=== PATIENT | female | born 1960 ===

== ENCOUNTER 2018-03-07 17:33 | Emergency (ER) | payer MEDICAID ==
[2018-03-07 17:33] VITALS: BMI 46.3
[2018-03-07 17:52] VITALS: BP 113/75; PULSE 68; RESP 18; TEMP 98.3; O2SAT 97
--- NOTE | 2018-03-07 17:53 | PCM.FALL ---
<Syeda Wallace - Last Filed: 03/07/18 17:38> Post Fall Progress Note - Post Fall Fall Date: 03/07/18 Fall Time: 17:11 Description of Fall: unwitnessed, fall outside of PACU, fell on left side, complains of left hip pain - Post Fall Exam Eye Exam: Positive for: Pupils equal Ear Exam: Negative for: Discharge Nose Exam: Negative for: Discharge Skin Exam: Negative for: Bruising Mouth Exam: Negative for: Tongue bitten Neck Exam: Negative for: Tenderness, Weakness Spinal Exam: Negative for: Tenderness Chest Exam: Negative for: Difficulty breathing, Tenderness in collar bones Abdomen Exam: Negative for: Tenderness Pelvic Exam: Negative for: Tenderness Arm Exam: Negative for: Deformity Other pertinent findings: tenderness in left trochanter Impression/Plan: Patient reports slipping on the floor and falling on her left hip. She denies any dizziness, shortness of breath, headache, chest pain, or nausea. Patient reports pain in the left hip. Fall was not witnessed. Patient denies any past medical history or taking any current medications. She denies hitting her head, taking any blood thinners, or antiplatelets, easy bruising or bleeding. She reports normally walking with a cane but did not bring it in to the hospital. She was visiting someone in the hospital. She is alert and oriented x 3. No gross motor deficits appreciated. No point tenderness in vertebral bodies from the cervical to lumbar spine. No tenderness in the sacrum. Patient was unable to flex left hip likely secondary to pain. PLAN: admit patient to the ED for complete work-up. <Lyly Gallagher - Last Filed: 03/08/18 08:12> Post Fall Progress Note - Post Fall Exam Vital Sign: Temp Pulse Resp BP Pulse Ox 98.3 F 68 18 113/75 97 03/07/18 17:33 03/07/18 17:33 03/07/18 17:33 03/07/18 17:33 03/07/18 17:33 Attending/Attestation - Attestation I have reviewed all pertinent clinical information, including history, physical exam and plan: Yes Notes (Text): Case discussed with resident. Patient sent to ER for further work up and treatment
--- NOTE | 2018-03-07 18:03 | ED PDOC ---
Arrival/HPI - General Historian: Patient - History of Present Illness Time/Duration: Prior to Arrival Quality: Aching Context: Home - General Chief Complaint: Trauma Time Seen by Provider: 03/07/18 18:02 - History of Present Illness Narrative History of Present Illness (Text): 03/07/18 18:03 This 57 yo female presents to this ED c/o left hip, lower back, and left shoulder pain x [employer]. Patient stated she tripped and fell down. Patient denies head injury, LOC, syncope, SOB, CP, /GI incontinence, saddle anesthesias, urinary retention, weakness, paresthesias, or dizziness. (Anne Marie Sanabria) Past Medical History - Provider Review Nursing Documentation Reviewed: Yes - Past Medical History Past Medical History: No Previous - Cardiac Hx Pacemaker: No - Neurological Hx Paralysis: No - Hematological/Oncological Hx Blood Transfusions: No - Musculoskeletal/Rheumatological Hx Musculoskeletal Disorders: Yes - Psychiatric Hx Emotional Abuse: No Hx Physical Abuse: No Hx Substance Use: No - Surgical History Hx Orthopedic Surgery: Yes (KNEE) - Anesthesia Hx Anesthesia: Yes Hx Anesthesia Reactions: No Hx Malignant Hyperthermia: No - Suicidal Assessment Feels Threatened In Home Enviroment: No Family/Social History - Physician Review Nursing Documentation Reviewed: Yes Family/Social History: Other (noncontributory) Smoking Status: Never Smoked Hx Alcohol Use: No Hx Substance Use: No Allergies/Home Meds Allergies/Adverse Reactions: Allergies No Known Allergies Allergy (Verified 10/16/13 10:43) Home Medications: Home Meds Medication Instructions Recorded Confirmed Ibuprofen [Advil] 200 mg PO PRN PRN 03/30/16 04/05/16 Review of Systems - Review of Systems Constitutional: Normal. absent: Fatigue, Weight Change, Fevers, Night Sweats Eyes: Normal ENT: Normal Respiratory: Normal Cardiovascular: Normal Gastrointestinal: Normal Genitourinary Female: Normal Musculoskeletal: Back Pain, Other (see hpi). absent: Neck Pain Skin: Normal Neurological: Normal. absent: Headache, Dizziness, Focal Weakness, Gait Changes , Speech Changes, Facial Droop, Disequilibrium, Seizure Endocrine: Normal Hemo/Lymphatic: Normal Psychiatric: Normal Physical Exam Temperature: Afebrile Blood Pressure: Normal Pulse: Regular Respiratory Rate: Normal Appearance: Positive for: Well-Appearing, Non-Toxic, Comfortable Pain Distress: None Mental Status: Positive for: Alert and Oriented X 3 - Systems Exam Head: Present: Atraumatic, Normocephalic Pupils: Present: PERRL Extroacular Muscles: Present: EOMI Conjunctiva: Present: Normal Mouth: Present: Moist Mucous Membranes Neck: Present: Normal Range of Motion Respiratory/Chest: Present: Clear to Auscultation, Good Air Exchange. No: Respiratory Distress, Accessory Muscle Use Cardiovascular: Present: Regular Rate and Rhythm, Normal S1, S2. No: Murmurs Abdomen: No: Tenderness, Distention, Peritoneal Signs Back: Present: Normal Inspection. No: CVA Tenderness Upper Extremity: Present: Normal Inspection, Normal ROM, NORMAL PULSES, Neurovascularly Intact. No: Cyanosis, Edema Lower Extremity: Present: Normal Inspection, NORMAL PULSES, Normal ROM, Neurovascularly Intact, Capillary Refill < 2 s. No: Edema Neurological: Present: GCS=15, CN II-XII Intact, Speech Normal, Motor Func Grossly Intact, Normal Sensory Function, Normal Cerebellar Funct, Gait Normal, Memory Normal Skin: Present: Warm, Dry, Normal Color. No: Rashes Psychiatric: Present: Alert, Oriented x 3, Normal Insight, Normal Concentration Vital Signs Temp Pulse Resp BP Pulse Ox 03/07/18 17:33 98.3 F 68 18 113/75 97 Medical Decision Making Re-evaluation Time: 19:23 Reassessment Condition: Re-examined, Improved ED Course and Treatment: 03/07/18 19:22 Patient is resting comfortably, is no longer having back pain, no fever, no bony tenderness, no numbness, no weakness, or abdominal pain. Patient is ambulatory in the emergency department with no signs of discomfort. Patient was advised to follow up with their physician in 1-2 days. Patient came to ED for evaluation of left hip pain. Patient stated she had a mechanical fall on her left hip. Patient stated left hip radiates to her lower back. She noted mild left shoulder pain. Patient has FROM of UE and LE. Physical exam was unremarkable. No ecchymosis, abrasion, or erythema visualized. Patient had a no tenderness of her left hip, left shoulder, or back examination. Patient has her normal baseline gait. Patient noted she uses a cane for ambulation, and she forgot to bring it with her today. X-rays were negative for fracture, and patient was recommended Naproxen 500 mg PO BID PRN pain, and Pepcid 40 mg daily for 5-7 days. To follow up PMD in 1-2 days, and to return to ED if pain worsen. (Anne Marie Sanabria) - RAD Interpretation Narrative RAD Interpretations (Text): 03/07/18 19:23 Shoulder x-rays: no Fx or dislocation Hip x-rays: No Fx. or dislocation LS X-rays: No Fx or sublux. (Anne Marie Sanabria) Radiology Orders: 03/07/18 18:05 Hip Left [HIP MIN 2V W/ PELVIS LT] [RAD] Stat 03/07/18 18:06 LS SPINE WITH OBL > 18 YRS OLD [RAD] Stat SHOULDER LEFT [RAD] Stat - Medication Orders Current Medication Orders: Discontinued Medications Naproxen (Anaprox Ds) 550 mg PO STAT STA Stop: 03/07/18 18:22 Last Admin: 03/07/18 18:33 Dose: 550 mg Disposition/Present on Arrival - Present on Arrival Any Indicators Present on Arrival: No History of DVT/PE: No History of Uncontrolled Diabetes: No Urinary Catheter: No History of Decub. Ulcer: No History Surgical Site Infection Following: None - Disposition Have Diagnosis and Disposition been Completed?: Yes Disposition Time: 19:25 Patient Plan: Discharge - Disposition Diagnosis: Back pain, Hip pain Disposition: HOME/ ROUTINE Condition: GOOD Discharge Instructions (ExitCare): Low Back Pain (DC), Hip Pain (DC) Additional Instructions: Call private doctor for follow up visit in 1-2 days. Take medication as instructed with food. Return to emergency if symptoms worsen. Prescriptions: Famotidine [Pepcid] 40 mg PO DAILY #10 tablet Naproxen 500 mg PO BID PRN #14 tablet PRN Reason: Pain, Severe (8-10) Referrals: Hayde Henderson MD [Primary Care Provider] - Follow up with primary Forms: [employer] ([place]ian)
[2018-03-07] MEDS ORDERED: Naproxen 550 mg Tab PO STA (18:21)
--- NOTE | 2018-03-08 08:15 | RAD ---
PROCEDURE: Left Hip and pelvis X-ray Radiographs. HISTORY: pain s/p fall COMPARISON: None. FINDINGS: BONES: Normal. No fracture. JOINTS: Normal. SOFT TISSUES: Normal. OTHER FINDINGS: None. IMPRESSION: Normal left hip radiographs.
--- NOTE | 2018-03-08 08:15 | RAD ---
Date of service: 03/07/2018 PROCEDURE: Radiographs of the Lumbar Spine. HISTORY: pain s/p fall COMPARISON: No prior. FINDINGS: BONES: Normal alignment. No listhesis. No fracture. DISC SPACES: Unremarkable. OTHER FINDINGS: Moderate facet arthropathy at L4-5 and L5-S1 IMPRESSION: No acute findings
--- NOTE | 2018-03-08 08:16 | RAD ---
Date of service: 03/07/2018 PROCEDURE: Radiographs of the Left Shoulder HISTORY: pain s/p fall COMPARISON: No prior. FINDINGS: BONES: Normal. No fracture. JOINTS: Normal. Glenohumeral and acromioclavicular joints preserved. No osteoarthritis. SOFT TISSUES: Normal. OTHER FINDINGS: None. IMPRESSION: Normal radiographs of the left shoulder.
== END 2018-03-07 19:45 | disposition home or self-care (01) ==
LOC: ED 17:33
DX: M54.5 Low back pain (principal); M25.552 Pain in left hip